=== PATIENT | male | born 1995 | race Caucasian/White ===

== ENCOUNTER 2022-01-22 18:30 | Emergency (ER) | payer OTHER ==
[~2022-01-22] VITALS: Ht 165.1 cm; Wt 77.0 kg
[2022-01-22] MEDS ORDERED: ACETAMINOPHEN 500MG TABLET PO NR (19:45)
[2022-01-22] MEDS ORDERED: ACETAMINOPHEN 500MG TABLET PO ONE (19:45)
[2022-01-22] MEDS ORDERED: KETOROLAC 60MG/2ML VIAL IM NR (21:45)
[2022-01-22] MEDS ORDERED: OXYCODONE HCL 5MG TABLET PO NR (21:45)
[2022-01-22 22:14] VITALS: BP 138/72
== END 2022-01-22 23:04 | disposition home or self-care (01) ==
LOC: ER 19:21
DX: S09.8XXA Other specified injuries of head, initial encounter (principal); W17.89XA Other fall from one level to another, initial encounter; Y93.89 Activity, other specified; Y92.89 Other specified places as the place of occurrence of the external cause; Y99.8 Other external cause status
CPT/HCPCS: 70450; 70486; 96372; 99284; J1885

== ENCOUNTER 2022-12-24 18:58 | Emergency (ER) | payer OTHER ==
[~2022-12-24] VITALS: Ht 162.6 cm; Wt 75.0 kg
[2022-12-24] MEDS ORDERED: IBUPROFEN 600MG TABLET PO STA (19:07)
[2022-12-24] MEDS ORDERED: IBUP-2029 MT (19:39)
[2022-12-24 19:41] VITALS: BP 118/58
== END 2022-12-24 19:52 | disposition home or self-care (01) ==
LOC: ER 19:09
DX: S20.213A Contusion of bilateral front wall of thorax, initial encounter (principal); V49.9XXA Car occupant (driver) (passenger) injured in unspecified traffic accident, initial encounter; Y93.89 Activity, other specified; Y92.89 Other specified places as the place of occurrence of the external cause; Y99.8 Other external cause status
CPT/HCPCS: 71045; 99283

== ENCOUNTER 2023-08-29 19:20 | Emergency (ER) | payer OTHER ==
[~2023-08-29 19:20] MED LIST: IBUP-2029 MT
[2023-08-29 19:41] VITALS: PULSE 89; RESP 16
== END 2023-08-30 00:57 | disposition left against medical advice (07) ==
LOC: ER 19:20
DX: R56.9 Unspecified convulsions (principal); Z53.21 Procedure and treatment not carried out due to patient leaving prior to being seen by health care provider
CPT/HCPCS: 99281